=== PATIENT | female | born 1990 | race Caucasian/White ===

== ENCOUNTER 2023-01-17 02:30 | Inpatient (IN) | payer OTHER ==
[2023-01-17] MEDS ORDERED: TERBUTALINE 1 MG/ML VIAL SQ PRN (03:37)
[2023-01-17] MEDS ORDERED: LIDOCAINE 0.5% (PF) 5 MG/ML (50 ML SDV) SQ PRN (03:37)
[2023-01-17] MEDS ORDERED: CARBOPROST TROMETHAMINE 250 MCG/ML 1 ML AMP IM PRN (03:37)
[2023-01-17] MEDS ORDERED: miSOPROStoL 200 MCG TAB PO PRN (03:37)
[2023-01-17] MEDS ORDERED: METHYLERGONOVINE 0.2 MG/ML 1 ML AMP IM PRN (03:37)
[2023-01-17] MEDS ORDERED: OXYTOCIN 10 UNIT/ML 1 ML VIAL IM PRN (03:37)
[2023-01-17] MEDS ORDERED: TRANEXAMIC 1,000 MG/100ML-NACL 1,000 MG in EMPTY BAG 1 BAG IV PRN (03:37)
[2023-01-17] MEDS: LACTATED RINGERS 1,000 ML IV SCH ×5 (04:00→23:53)
[2023-01-17 04:18] LABS: Basophils % (A) 0 %; Eosinophils # (A) 0.1 k/uL (0-0.7); Eosinophils % (A) 1 %; HCT 30.6 % (34.0-46.0); HGB 10.7 gm/dL (11.4-16.0); Lymphocytes # (A) 2.3 k/uL (1.0-4.8); Lymphocytes % (A) 21 %; MCH 30.7 pg (25.0-35.0); MCHC 34.8 g/dL (31.0-37.0); MCV 88.2 fL (80.0-100.0); Monocytes # (A) 0.7 k/uL (0-1.0); Monocytes % (A) 6 %; Neutrophils % (A) 71 %; Platelet Count 253 k/uL (150-450); RBC 3.47 m/uL (3.80-5.40); RDW 15.7 % (11.5-15.5); WBC 11.4 k/uL (3.8-10.6)
[2023-01-17] MEDS ORDERED: OXYTOCIN 30 UNITS/500 ML NS 30 UNIT in SALINE 1 500ML.BAG IV SCH ×2 (04:30→21:15)
[2023-01-17 07:57] LABS: Basophils % (A) 0 %; Eosinophils # (A) 0.1 k/uL (0-0.7); Eosinophils % (A) 1 %; HCT 29.7 % (34.0-46.0); HGB 10.1 gm/dL (11.4-16.0); Lymphocytes # (A) 2.1 k/uL (1.0-4.8); Lymphocytes % (A) 21 %; MCH 30.1 pg (25.0-35.0); MCHC 34.1 g/dL (31.0-37.0); MCV 88.3 fL (80.0-100.0); Mean Platelet Volume 11.7; Monocytes # (A) 0.5 k/uL (0-1.0); Monocytes % (A) 5 %; Neutrophils # (A) 7.5 k/uL (1.3-7.7); Neutrophils % (A) 72 %; Platelet Count 226 k/uL (150-450); RBC 3.37 m/uL (3.80-5.40); RDW 15.5 % (11.5-15.5); WBC 10.4 k/uL (3.8-10.6)
[2023-01-17 08:07] LABS: ALT 19 U/L (4-34); AST 26 U/L (14-36); African American GFR (CKD) >90 (>60 ml/min/1.73 sqM); Blood Urea Nitrogen 8 mg/dL (7-17); LDH 195 U/L (120-246); Magnesium 1.5 mg/dL (1.6-2.3); Non-African American GFR(CKD) >90 (>60 ml/min/1.73 sqM); Uric Acid 5.4 mg/dL (3.7-7.4)
[2023-01-17 08:47] LABS: INR 0.9 (<1.2); Partial Thromboplastin Time 24.7 sec (22.0-30.0); Prothrombin Time 10.1 sec (10.0-12.5)
[2023-01-17] MEDS ORDERED: NALBUPHINE 10 MG/ML (10 ML MDV) IV PRN (10:43)
--- NOTE | 2023-01-17 10:44 | P.HPOB ---
History of Present Illness H&P Date: 01/17/23 Chief Complaint: 39-2/7 weeks, spontaneous rupture of membranes The patient is a 32-year-old 3 para 0020 admitted at 39-2/7 weeks as established by last menstrual period and confirmed by seven-week ultrasound. She is admitted with documented spontaneous rupture of membranes and very early labor. Her has been essentially uncomplicated though she is known to have a septate uterus. On labor and delivery, all signs reassuring with a category 1 heart rate tracing. Group B strep status is negative. Obstetrical history: 3 para 0020 with 2 early miscarriages. Current statistics are listed in history of present illness. EDC of 01/21/2023 was established by last menstrual period and confirmed by seven-week ultrasound. Laboratory workup demonstrates a blood type of A+ with a negative antibody screen. Rubella status is nonimmune. The remainder of the laboratory workup was within normal limits. One hour Glucola was normal and group B strep status is negative. Gynecologic history: Unremarkable with no history of any infections to include STDs. Review of Systems Review of systems is confined to history of present illness. Past Medical History Past Medical History: No Reported History History of Any Multi-Drug Resistant Organisms: None Reported Additional Past Surgical History / Comment(s): wisdom teeth Past Anesthesia/Blood Transfusion Reactions: No Reported Reaction Past Psychological History: No Psychological Hx Reported Smoking Status: Never smoker Past Drug Use History: None Reported Medications and Allergies Home Medications Medication Instructions Recorded Confirmed Type Vit No.179/Iron/Folic 1 tab PO DAILY 01/17/23 01/17/23 History [ Tablet] Allergies Allergy/AdvReac Type Severity Reaction Status Date / Time No Known Allergies Allergy Verified 01/17/23 02:57 Exam Vital Signs Temp Pulse Resp BP Pulse Ox 01/17/23 03:37 98.6 F 90 16 132/90 98 01/17/23 02:55 98.3 F 90 16 132/90 98 Intake and Output 01/16/23 01/17/23 01/17/23 22:59 06:59 14:59 Other: # Voids 1 Weight 88.451 kg In general, this is a well-developed, well-nourished white female in no acute distress. Her heart has a regular rhythm and rate without murmur. Her lungs are clear to auscultation bilaterally in all maloney. Her abdomen is gravid, nondistended, has normal active bowel sounds, soft, nontender, and without any palpable masses aside from uterine fundus. Her extremities are without any cyanosis, clubbing, or significant edema and are nontender to palpation bilaterally. Digital cervical examination performed by the nursing staff demonstrates her cervix to be 1 cm dilated, 80% effaced, the vertex in presentation at -2 station. Spontaneous rupture of membranes has been confirmed with clear fluid. Results Result Diagrams: 01/17/23 06:52 01/17/23 06:52 Abnormal Lab Results - Last 24 Hours (Table) 01/17/23 01/17/23 01/17/23 Range/Units 03:40 06:52 06:52 WBC 11.4 H (3.8-10.6) k/uL RBC 3.47 L 3.37 L (3.80-5.40) m/uL Hgb 10.7 L 10.1 L (11.4-16.0) gm/dL Hct 30.6 L 29.7 L (34.0-46.0) % RDW 15.7 H (11.5-15.5) % Neutrophils # 8.0 H (1.3-7.7) k/uL Creatinine 0.48 L (0.52-1.04) mg/dL Magnesium 1.5 L (1.6-2.3) mg/dL Assessment and Plan (1) Spontaneous rupture of membranes Current Visit: Yes Status: Acute Code(s): INW6766 - SNOMED Code(s): 726869892 (2) Term Current Visit: Yes Status: Acute Code(s): Z34.90 - ENCNTR FOR SUPRVSN OF NORMAL , UNSP, UNSP TRIMESTER SNOMED Code(s): 06107876 Plan: The patient is admitted for active management of labor. She has had Pitocin augmentation started. She will continue to have close maternal and surveillance and expectant management will be practiced. She is a good candidate for IV, epidural, or nitrous analgesia, whichever she may choose.
[2023-01-17] MEDS ORDERED: ROPIVACAINE 5 MG/ML 30 ML VIAL ONE (13:26)
[2023-01-17] MEDS ORDERED: fentaNYL (PF) 50 MCG/ML 5 ML AMP ONE (13:26)
[2023-01-17] MEDS ORDERED: SODIUM CHLORIDE 0.9% 250 ML BAG ONE (13:26)
[2023-01-17] MEDS ORDERED: PENICILLIN G POTASSIUM 5,000,000 UNIT in DEXTROSE 5% IN WATER 100 ML IVPB STA ×2 (16:28)
[2023-01-17] MEDS ORDERED: PENICILLIN G POTASSIUM 2,500,000 UNIT in DEXTROSE 5% IN WATER 100 ML IVPB SCH ×2 (20:30)
[2023-01-17 20:43] LABS: Glucose,Whole Blood 82 mg/dL (70-110)
[2023-01-17] MEDS ORDERED: LABETALOL 100 MG TAB PO STA (20:44)
[2023-01-17] MEDS ORDERED: LACTATED RINGERS 1,000 ML IV ONE (21:14)
[2023-01-17] MEDS ORDERED: CITRIC ACID-SODIUM CITRATE 15 ML CUP PO ONE ×2 (21:14→21:18)
[2023-01-17] MEDS ORDERED: HYDROmorphone (PF) 1 MG/ML ONE (21:41)
[2023-01-17] MEDS ORDERED: PROPOFOL 10 MG/ML 20 ML VIAL IV ONE (21:41)
[2023-01-17] MEDS ORDERED: fentaNYL (PF) 50 MCG/ML 2 ML AMP ONE (21:41)
[2023-01-17] MEDS ORDERED: ONDANSETRON 4 MG/2 ML VIAL ONE (21:41)
[2023-01-17] MEDS ORDERED: OXYTOCIN 30 UNITS/500 ML NS BAG IV ONE (21:41)
[2023-01-17] MEDS ORDERED: DEXAMETHASONE SOD PHOSPHATE 4 MG/ML 1 ML VIAL ONE (21:41)
[2023-01-17] MEDS ORDERED: diphenhydrAMINE 50 MG/ML 1 ML VIAL IVP PRN ×2 (22:31)
[2023-01-17] MEDS ORDERED: NALOXONE 0.4 MG/ML 1 ML VIAL IV PRN (22:31)
[2023-01-17] MEDS ORDERED: ZOLPIDEM 5 MG TAB PO PRN (22:31)
[2023-01-17] MEDS ORDERED: diphenhydrAMINE 25 MG CAP PO PRN (22:31)
[2023-01-17] MEDS ORDERED: LANOLIN CREAM 5 GM TUBE TOPICAL PRN (22:31)
[2023-01-17] MEDS ORDERED: diphenhydrAMINE 50 MG CAP PO PRN (22:31)
[2023-01-17] MEDS ORDERED: ONDANSETRON 4 MG/2 ML VIAL IVP PRN (22:31)
[2023-01-17] MEDS ORDERED: METOCLOPRAMIDE 5 MG/ML 2 ML VIAL IVP PRN (22:31)
--- NOTE | 2023-01-17 22:42 | P.OP ---
Date of Procedure: 01/17/23 Preoperative Diagnosis: #1. 39-3/7 weeks, spontaneous rupture of membranes, labor #2. Maternal exhaustion #3. Arrest of descent at a high station Postoperative Diagnosis: Same Procedure(s) Performed: #1. Primary low-transverse section Anesthesia: epidural Surgeon: Iron Osuna Soap Tender #1: Yancy Jimenez Estimated Blood Loss (ml): 669 IV fluids (ml): 600 Urine output (ml): 120 Pathology: other (Placenta) Condition: stable Disposition: floor Operative Findings: Preoperatively, the patient had been in labor since last night having presented with spontaneous rupture of membranes. She had an extraordinarily low slow labor course, particularly from 5 cm to her ultimate dilation of anterior lip. station never descended below -2 to -3 station. Significant cervical swelling was noted. She remained at anterior lip and -2-3 station for approximately 2-3 hours. She had antibiotic prophylaxis started at 15 hours post rupture and was well past the diagnosis of 18 hours post rupture meeting the diagnosis of prolonged rupture of membranes. She reported significant exhaustion and, under the circumstances agreed to/requested delivery. She was taken to the operating room where she was delivered of a viable 8 lbs. 8 oz. baby girl with Apgars of 9 at 1 minute and 10 at 5 minutes delivered in the left occiput transverse position. There was a loose nuchal cord 1 which was reduced following delivery of the infant's head and prior to the body. The placenta was delivered manually, intact, and grossly normal with a grossly normal three-vessel cord. The uterus, tubes, and ovaries were entirely normal to inspection. Description of Procedure: The patient was prepped and draped in usual fashion after epidural anesthesia was bolused by the anesthesiologist. A Pfannenstiel incision was made and extended into the abdominal cavity without difficulty. The bladder peritoneum was elevated, incised, and reflected distally. A 2 cm incision was made in the transverse plane of the lower uterine segment to enter the uterus at which time clear fluid was again noted. The incision was extended in both directions using the bandage scissors. The head was encountered deep in the pelvis and delivered up and through the incision in the occiput transverse position as noted above. The nose and mouth were thoroughly suctioned on the field. The nuchal cord was reduced and the remainder of the delivered onto the field where the cord was doubly clamped, cut, and the passed for resuscitative measures with weight and Apgars as noted above. A segment of cord was doubly clamped, cut, and set aside should cord gases become necessary. The placenta was delivered manually and intact as noted above. The uterus was exteriorized and the interior cavity of the uterus swept of any remaining placental or membranous fragments with a laparotomy sponge. The margins of the uterine incision were grasped with Charles clamps and then closed in 2 layers. The first layer was a running locking stitch of 0 chromic catgut from margin to margin followed by a running imbricating stitch of 0 chromic catgut from margin to margin. Hemostasis appeared to be excellent. The posterior cul-de-sac was suctioned with a guard and the uterine and ovarian findings were normal as noted above. The uterus was replaced within the abdominal cavity and the gutters swept of any remaining blood, fluid, or clot. Examination of the incision demonstrated excellent hemostasis though the Bovie was used on the margin of the bladder peritoneum near the left angle. Once hemostasis was established, the parietal peritoneum was loosely reapproximated in the layer of muscles examined and found to be hemostatic. The fascia was closed with a single running stitch of 0 Vicryl proceeding from margin to margin. The subcutaneous tissues were irrigated, made hemostatic with the Bovie, and reapproximated with a running stitch of 30 plain catgut. The skin was repaired with a running subcuticular stitch of 4-0 Vicryl followed by half-inch Steri-Strips placed with Mastisol. Quantitative blood loss was 669 mL. There were no Applications. All sponge, instrument, needle counts were correct. Both mother and are resting comfortably in recovery.
[2023-01-18] MEDS ORDERED: MEASLES-MUMPS-RUBELLA VACC/PF 12,500 UNIT/0.5 ML VIAL SQ ONE (01:17)
[2023-01-18] MEDS: ACETAMINOPHEN TAB 500 MG TAB PO SCH ×4 (01:44→21:30)
[2023-01-18] MEDS: LACTATED RINGERS 1,000 ML IV SCH ×3 (02:38→16:51)
[2023-01-18] MEDS: IBUPROFEN 600 MG TAB PO SCH ×3 (04:33→19:16)
[2023-01-18] MEDS: KETOROLAC 15 MG/ML 1 ML VIAL IVP PRN ×2 (04:45→12:11)
[2023-01-18 06:27] LABS: Basophils % (A) 0 %; Eosinophils # (A) 0.1 k/uL (0-0.7); Eosinophils % (A) 1 %; HCT 26.7 % (34.0-46.0); HGB 9.1 gm/dL (11.4-16.0); Lymphocytes # (A) 1.4 k/uL (1.0-4.8); Lymphocytes % (A) 7 %; MCH 30.5 pg (25.0-35.0); MCHC 34.2 g/dL (31.0-37.0); MCV 89.2 fL (80.0-100.0); Mean Platelet Volume 11.2; Monocytes # (A) 0.8 k/uL (0-1.0); Monocytes % (A) 4 %; Neutrophils # (A) 16.3 k/uL (1.3-7.7); Neutrophils % (A) 87 %; Platelet Count 226 k/uL (150-450); RDW 15.7 % (11.5-15.5); WBC 18.8 k/uL (3.8-10.6)
--- NOTE | 2023-01-18 07:23 | P.PN ---
Progress Note - Text Progress Note Date: 01/18/23 (812) Anesthesia Postop day 1 Subjective: Status Post section with Duramorph. Patient seen and examined. Doing well without complaint. VAS 0. Denies nausea vomiting or pruritus. Denies fever. Gross lower extremity strength appears intact. Without apparent anesthetic complications. Objective: Vital signs reviewed Heart: Regular Rate Lungs: Good chest excursion Abdomen: Appears nondistended Assessment: Status post with Duramorph postop day 1 Plan: Continue current care with your medical management. Anticipated and the Duramorph section around time today. You may see increased pain needs around this time.
[2023-01-18] MEDS: SENNOSIDES-DOCUSATE SODIUM 1 EACH TAB PO SCH ×2 (08:08→20:03)
--- NOTE | 2023-01-18 11:49 | P.PNOBGPC ---
Subjective - Subjective Patient reports: Reports appetite normal, Reports voiding normally, Reports pain well controlled, Reports ambulating normally : doing well, in NICU (For prophylactic antibiotics secondary to elevated white count in the face of prolonged rupture of membranes) Objective - Vital Signs Latest vital signs: Vital Signs Temp Pulse Resp BP Pulse Ox 01/18/23 08:00 98.1 F 83 18 113/71 98 01/18/23 05:00 98.5 F 86 16 123/71 95 01/18/23 00:29 98.8 F 95 16 122/62 96 01/17/23 23:59 99.3 F 96 16 121/59 94 L 01/17/23 23:44 100.3 F H 01/17/23 23:29 103 H 16 124/60 97 01/17/23 23:14 99.9 F H 95 16 120/60 98 01/17/23 22:59 99.2 F 100 16 119/59 98 01/17/23 22:44 100.4 F H 100 16 124/60 98 01/17/23 22:29 100.2 F H 98 16 135/74 98 Intake and Output 01/17/23 01/18/23 01/18/23 22:59 06:59 14:59 Intake Total 600 Output Total 789 160 800 Balance -189 -160 -800 Intake: IV 600 Output: Urine 120 100 800 Output, Quantitative 669 60 Blood Loss Other: # Voids 0 - Exam Extremities: Present: normal, edema (Moderate bilateral lower extremity edema consistent with long labor) Abdomen: Present: normal appearance, soft. Absent: distention, tenderness Incision: Present: normal, dry, intact Uterus: Present: normal, firm (The uterine fundus as tonic and minimal to appropriately tender just below the umbilicus.) - Labs Labs: Abnormal Lab Results - Last 24 Hours (Table) 01/18/23 Range/Units 06:11 WBC 18.8 H (3.8-10.6) k/uL RBC 3.00 L (3.80-5.40) m/uL Hgb 9.1 L (11.4-16.0) gm/dL Hct 26.7 L (34.0-46.0) % RDW 15.7 H (11.5-15.5) % Neutrophils # 16.3 H (1.3-7.7) k/uL Assessment and Plan (1) Spontaneous rupture of membranes Current Visit: Yes Status: Acute Code(s): QXR3595 - SNOMED Code(s): 694113902 (2) Term Current Visit: Yes Status: Acute Code(s): Z34.90 - ENCNTR FOR SUPRVSN OF NORMAL , UNSP, UNSP TRIMESTER SNOMED Code(s): 20191349 (3) S/P section Current Visit: Yes Status: Acute Code(s): Z98.891 - HISTORY OF UTERINE SCAR FROM PREVIOUS SURGERY SNOMED Code(s): 846496785 Plan: Continue routine and postoperative care. I have encouraged the patient ambulate in the hallways routinely. She will likely remain in the hospital until the disposition of her or 4 days postoperatively should the be kept in the hospital.
[2023-01-19] MEDS: IBUPROFEN 600 MG TAB PO SCH ×4 (01:23→21:16)
[2023-01-19] MEDS: ACETAMINOPHEN TAB 500 MG TAB PO SCH ×4 (04:39→23:12)
[2023-01-19] MEDS: SENNOSIDES-DOCUSATE SODIUM 1 EACH TAB PO SCH ×2 (08:07→21:16)
[2023-01-19] MEDS: SIMETHICONE 80 MG CHEWABLE PO PRN ×2 (08:09→21:16)
--- NOTE | 2023-01-19 10:59 | P.PNOBGPC ---
Subjective - Subjective Principal diagnosis: s/p section Interval history: The patient is doing well this morning and had no acute events overnight. She has no complaints this morning. She reports minimal lochia, passing flatus, voiding without difficulty, ambulating, and eating/drinking without nausea or vomiting. She is her without difficulty. She denies chest pain, shortness of breathing, fevers, or chills overnight. She denies pain or swelling in the legs. Patient reports: Reports appetite normal, Reports voiding normally, Reports pain well controlled, Reports ambulating normally : doing well (in nursery for IV abx) Objective - Vital Signs Latest vital signs: Vital Signs Temp Pulse Resp BP Pulse Ox 01/19/23 08:00 98.1 F 85 16 139/87 100 01/19/23 04:41 97.8 F 90 16 126/77 98 01/19/23 00:00 98.4 F 90 16 125/85 99 01/18/23 20:14 97.6 F 92 16 133/86 99 01/18/23 17:49 18 142/83 01/18/23 16:00 98.0 F 80 18 149/84 99 01/18/23 12:00 97.9 F 84 18 127/75 98 Intake and Output 01/18/23 01/19/23 01/19/23 22:59 06:59 14:59 Output Total 250 Balance -250 Output: Urine 250 Other: # Voids 1 1 - Exam Extremities: Present: normal Abdomen: Present: normal appearance, soft Incision: Present: normal, dry, intact Uterus: Present: normal, firm Assessment and Plan Assessment: 32 year old now POD#2 s/p primary section 2/2 maternal exhaustion Plan: 1. Postoperative. Patient meeting all post-operative milestones appropriately. 2. Elevated BPs. Patient had a one-time dose of antihypertensive. Now BPs normotensive to mild range, <150/90 3. Viable female in the nursery for IV antibiotics after prolonged rupture of membranes Dispo: Anticipate discharge home on POD#3 or 4, depending on stay of female .
[2023-01-20] MEDS: IBUPROFEN 600 MG TAB PO SCH ×2 (03:11→09:39)
[2023-01-20] MEDS: ACETAMINOPHEN TAB 500 MG TAB PO SCH ×3 (06:40→15:53)
[2023-01-20] MEDS: SENNOSIDES-DOCUSATE SODIUM 1 EACH TAB PO SCH (07:55)
--- NOTE | 2023-01-20 08:43 | P.DS ---
Providers Date of admission: 01/17/23 03:13 Expected date of discharge: 01/20/23 Attending physician: Mary Harp MD Primary care physician: Stated None Hospital Course: Ms. Chambers is a 32 year old now post operative day #3 status post a primary section for maternal request. She is doing well and desires discharge home today. She has no complaints this morning. She reports minimal lochia, passing flatus, voiding without difficulty, ambulating, and eating/drinking without nausea or vomiting. doing well in the nursery, awaiting 48 hour blood culture prior to discharge. She denies chest pain, shortness of breathing, fevers, or chills overnight. She denies pain or swelling in the legs. Postoperative restrictions are reviewed with the patient including pelvic rest for 6 weeks, no lifting heavier than 15 pounds for 6 weeks. The patient is encouraged to call the office if she experiences any heavy bleeding, foul-smelling discharge, breast complaints, or any if she has any other concerns. She will follow up in the office with in 2 weeks for postoperative exam. She will go home with Motrin and Tylenol. All questions are answered. Assessment: 32 year old POD#3 s/p primary section 2/2 maternal request Patient Condition at Discharge: Good Plan - Discharge Summary New Discharge Prescriptions: No Action Vit No.179/Iron/Folic [ Tablet] 1 tab PO DAILY Discharge Medication List Vit No.179/Iron/Folic [ Tablet] 1 tab PO DAILY 01/17/23 [History]
[2023-01-20 13:18] VITALS: PULSE 98
[2023-01-20 16:56] VITALS: BP 145/88; RESP 16; TEMP 98.1
== END 2023-01-20 19:03 | disposition home or self-care (01) | DRG 788 ==
LOC: FBPOP 02:30 → 4FBP 03:13
PROVIDERS: ADMIT Obstetrics & Gynecology; ATTEND Obstetrics & Gynecology
PROC: 3E033VJ Introduction of Other Hormone into Peripheral Vein, Percutaneous Approach (ICD-10-PCS; 2023-01-17)
PROC: 10D00Z1 Extraction of Products of Conception, Low, Open Approach (ICD-10-PCS; principal; 2023-01-17 21:41)
DX: O42.92 Full-term premature rupture of membranes, unspecified as to length of time between rupture and onset of labor (principal); O32.2XX0 Maternal care for transverse and oblique lie, not applicable or unspecified; O62.1 Secondary uterine inertia; O69.81X0 Labor and delivery complicated by cord around neck, without compression, not applicable or unspecified; O75.81 Maternal exhaustion complicating labor and delivery; Q51.28 Other and unspecified doubling of uterus; Z37.0 Single live birth; Z3A.39 39 weeks gestation of pregnancy
CPT/HCPCS: 59025; 82565; 83615; 83735; 84112; 84450; 84460; 84520; 84550; 85025; 85384; 85610; 85730; 86850; 86900; 86901; 88307; 90707; 99213